=== PATIENT | female | born 1995 | race Caucasian/White ===

== ENCOUNTER 2021-11-28 13:53 | Emergency (ER) | payer BC ==
[2021-11-28] MEDS ORDERED: Ondansetron ODT 4 MG TAB ONE (14:58)
== END 2021-11-28 17:49 | disposition home or self-care (01) ==
LOC: CSHERS 13:53
DX: S09.90XA Unspecified injury of head, initial encounter (principal); R11.2 Nausea with vomiting, unspecified; W22.8XXA Striking against or struck by other objects, initial encounter
CPT/HCPCS: 70450; Q0162